=== PATIENT | female | born 1990 | race Caucasian/White ===

== ENCOUNTER → 2016-08-08 | Outpatient (CLI) | payer OTHER | LOC: CIMAGING 07:56 | DX: Z36 Encounter for antenatal screening of mother (principal) | CPT/HCPCS: 76805-PO ==

== ENCOUNTER → 2016-09-04 | Outpatient (CLI) | payer OTHER | LOC: FIMAGING 09:27 | DX: Z36 Encounter for antenatal screening of mother (principal); Z3A.23 23 weeks gestation of pregnancy; O32.1XX0 Maternal care for breech presentation, not applicable or unspecified ==